=== PATIENT | male | born 1955 | race Caucasian/White ===

== ENCOUNTER 2016-12-07 14:55 | Observation (INO) | payer OTHER ==
[~2016-12-07] VITALS: Ht 165.1 cm; Wt 83.6 kg
[~2016-12-07 14:55] MED LIST: Aspirin Chewable PO; METOPROLOL SUCC50 MG PO; PLAVIX75 MG PO; ZOCOR10 M1 PO
[2016-12-07 16:36] LABS: EOSINOPHIL (%) 2.3 % (0-5); EOSINOPHIL COUNT 0.2 K/uL (0-0.3); HEMATOCRIT 45.3 % (38.0-50.0); IMMATURE GRANULOCYTE (%) 0.4 % (0.0-0.7); INSTRUMENT ABS NEUTROPHIL CT 5.1 K/uL; LYMPHOCYTE COUNT 1.3 K/uL (1.0-2.8); MCH 30.5 PG (29.0-34.0); MCV 89.7 FL (86-99); MEAN PLAT.VOLUME 9.5 uM^3 (9.0-12.4); MONOCYTE (%) 10.5 % (3-12); MONOCYTE COUNT 0.8 K/uL (0-0.8); NEUTROPHIL (%) 68.8 % (45-76); NEUTROPHIL COUNT 5.1 K/uL (1.8-6.4); PLATELET COUNT 176 K/uL (156-360); RBC DIS.WIDTH-CV 13.2 % (11.8-14.6); RBC DIS.WIDTH-SD 43.4 % (39-53); RED BLOOD COUNT 5.05 M/uL (4.00-5.50); WHITE BLOOD COUNT 7.4 K/uL (4.1-10.2)
[2016-12-07 16:45] LABS: CHLORIDE 107 mEq/L (99-109); POTASSIUM 4.2 mEq/L (3.7-5.4); SODIUM 141 mEq/L (136-147)
[2016-12-07 16:46] LABS: MAGNESIUM 2.3 mg/dL (1.3-2.7)
[2016-12-07 16:47] LABS: GLUCOSE 82 mg/dL (70-99); PROTHROMBIN TIME 10.6 (9.2-11.2); PTT 26.9 (25-32)
[2016-12-07 16:49] LABS: ANION GAP 8 MEQ/L (2-14)
[2016-12-07 16:51] LABS: GFR ESTIMATE (CALCULATED) > 59 mL/min/
[2016-12-07 16:52] LABS: UREA NITROGEN (BUN) 24 mg/dL (9-23)
[2016-12-07 17:00] LABS: TROP-I INTERPRETATION NEGATIVE; TROPONIN-I < 0.01 ng/mL (0.0-0.30)
[2016-12-07] MEDS ORDERED: ZOCOR40 MG PO (19:29)
[2016-12-07] MEDS ORDERED: LO-DOSE ASPIRIN81 M2 PO ×2 (19:29→19:32)
[2016-12-07] MEDS ORDERED: BUPROPION XL150 MG PO (19:30)
[2016-12-07 22:49] LABS: HDL CHOLESTEROL 38 MG/DL (Desirable>=40); LDL CHOLESTEROL 70 mg/dL (Desirable<100); NON-HDL CHOLESTEROL 117 mg/dL (Desirable<160); TOTAL CHOLESTEROL 155 mg/dL (Desirable<200); TRIGLYCERIDES 236 MG/DL (Normal: <150)
[2016-12-07 23:30] VITALS: BP 120/77
[2016-12-08 01:02] LABS: TROP-I INTERPRETATION NEGATIVE; TROPONIN-I < 0.01 ng/mL (0.0-0.30)
[2016-12-08 03:11] VITALS: BP 106/69
[2016-12-08 06:23] LABS: HEMATOCRIT 45.3 % (38.0-50.0); MCHC 33.6 G/DL (30.0-36.0); MCV 89.5 FL (86-99); MEAN PLAT.VOLUME 9.8 uM^3 (9.0-12.4); PLATELET COUNT 168 K/uL (156-360); RBC DIS.WIDTH-CV 13.1 % (11.8-14.6); RED BLOOD COUNT 5.06 M/uL (4.00-5.50); WHITE BLOOD COUNT 7.4 K/uL (4.1-10.2)
[2016-12-08 06:45] LABS: TROP-I INTERPRETATION NEGATIVE; TROPONIN-I < 0.01 ng/mL (0.0-0.30)
[2016-12-08 08:05] VITALS: BP 115/78
[2016-12-08 10:05] VITALS: BP 110/66
[2016-12-08 12:38] VITALS: BP 111/68
[2016-12-09 07:14] LABS: Estimated Average Glucose 117 mg/dL (70-123); HEMOGLOBIN A1c (GLYCOHEMOGLOB) 5.7 % HGB (Below 5.7)
== END 2016-12-08 14:35 | disposition home or self-care (01) ==
LOC: EME 14:55 → EDOF 21:41 → 5WEST 23:21
PROVIDERS: Emergency Medicine; Hospitalist
DX: G45.9 Transient cerebral ischemic attack, unspecified (principal); R29.810 Facial weakness; M62.81 Muscle weakness (generalized); H53.8 Other visual disturbances; R47.89 Other speech disturbances; I10 Essential (primary) hypertension; I25.10 Atherosclerotic heart disease of native coronary artery without angina pectoris; Z95.5 Presence of coronary angioplasty implant and graft; E78.00 Pure hypercholesterolemia, unspecified; Z87.891 Personal history of nicotine dependence
CPT/HCPCS: 70450; 70551; 71010; 80048; 80061; 82607; 82746; 83036; 83735; 84484; 85025; 85027; 85610; 85730; 93880; 99281; 99285; G0378; J1644

== ENCOUNTER 2017-07-25 19:00 | Emergency (ER) | payer OTHER ==
[~2017-07-25] VITALS: Ht 165.1 cm; Wt 87.2 kg
[~2017-07-25 19:00] MED LIST changes: +BUPROPION XL150 MG PO; +LO-DOSE ASPIRIN81 M2 PO; +ZOCOR40 MG PO
[2017-07-25 19:42] LABS: BASOPHIL (%) 0.6 % (0-1); EOSINOPHIL (%) 3.5 % (0-5); EOSINOPHIL COUNT 0.3 K/uL (0-0.3); HEMATOCRIT 46.2 % (38.0-50.0); HEMOGLOBIN 15.8 G/DL (12.5-16.6); IMMATURE GRANULOCYTE (%) 0.3 % (0.0-0.7); LYMPHOCYTE (%) 24.5 % (15-42); LYMPHOCYTE COUNT 1.7 K/uL (1.0-2.8); MCH 30.5 PG (29.0-34.0); MCHC 34.2 G/DL (30.0-36.0); MCV 89.2 FL (86-99); MONOCYTE (%) 10.3 % (3-12); MONOCYTE COUNT 0.7 K/uL (0-0.8); NEUTROPHIL (%) 60.8 % (45-76); NEUTROPHIL COUNT 4.3 K/uL (1.8-6.4); PLATELET COUNT 164 K/uL (156-360); RBC DIS.WIDTH-CV 13.4 % (11.8-14.6); RBC DIS.WIDTH-SD 43.9 % (39-53); RED BLOOD COUNT 5.18 M/uL (4.00-5.50); WHITE BLOOD COUNT 7.1 K/uL (4.1-10.2)
[2017-07-25 19:49] LABS: ALBUMIN 4.1 g/dL (3.2-4.8); CHLORIDE 105 mEq/L (99-109); POTASSIUM 4.1 mEq/L (3.7-5.4); SODIUM 140 mEq/L (136-147)
[2017-07-25 19:50] LABS: MAGNESIUM 2.4 mg/dL (1.3-2.7)
[2017-07-25 19:52] LABS: GLUCOSE 91 mg/dL (70-99); TOTAL PROTEIN 7.2 g/dL (6.4-8.3)
[2017-07-25 19:53] LABS: TOTAL BILIRUBIN 0.5 mg/dL (0.0-1.0)
[2017-07-25 19:54] LABS: SERUM ETHYL ALCOHOL < 10 mg/dL
[2017-07-25 19:55] LABS: CREATININE 0.9 mg/dL (0.6-1.3); GFR ESTIMATE (CALCULATED) > 59 mL/min/ (58.99-99999)
[2017-07-25 19:56] LABS: ALKALINE PHOSPHATASE 71 IU/L (3-129)
[2017-07-25 19:57] LABS: AST (GOT) 34 IU/L (2-34); UREA NITROGEN (BUN) 22 mg/dL (9-23)
[2017-07-25 19:59] LABS: ACETAMINOPHEN (TYLENOL) < 10 mcg/mL (10-30); ALT (GPT) 45 IU/L (3-49); SALICYLATE < 5.0 MG/DL (15-30)
[2017-07-25 21:24] VITALS: BP 148/93
== END 2017-07-25 21:24 | disposition home or self-care (01) ==
LOC: EME 19:00
PROVIDERS: Emergency Medicine
DX: F33.1 Major depressive disorder, recurrent, moderate (principal); I10 Essential (primary) hypertension; E78.5 Hyperlipidemia, unspecified; Z95.5 Presence of coronary angioplasty implant and graft; Z79.02 Long term (current) use of antithrombotics/antiplatelets; Z79.82 Long term (current) use of aspirin
CPT/HCPCS: 80053; 81003; 83735; 85025; 90839; 99281; 99285; G0480